=== PATIENT | female | born 1995 | race Caucasian/White ===

== ENCOUNTER 2022-12-20 10:57 | Emergency (ER) | payer BC, MEDICAID, SELFPAY ==
[2022-12-20 11:12] VITALS: BP 139/83; PULSE 82; RESP 16; TEMP 36.4; O2SAT 100
--- NOTE | 2022-12-20 11:17 | ED.SKABFB ---
HPI - Skin/Abscess/Foreign Bdy General Chief complaint: Skin/Abscess/Foreign Body Stated complaint: SUNBURN/FACIAL SWELLING Time Seen by Provider: 12/20/22 11:15 Source: patient Mode of arrival: ambulatory Limitations: no limitations History of Present Illness HPI narrative: Joaquin is a 27-year-old female patient presenting to the clinic today with complaints of lower lip swelling and blistering x1 day. States she is having burning and stinging pain to her lip. She reports her symptoms began yesterday morning. States she has recently got a sunburn and denies burning her lips however she thinks that this may be contributing factor. History of cold sores in the past. No fever or chills. Denies any environmental changes-new lip balm, lipstick, soaps, detergents, or lotions Related Data Home Medications Medication Instructions Recorded Confirmed No Home Medications 12/20/22 12/20/22 Allergies Allergy/AdvReac Type Severity Reaction Status Date / Time No Known Allergies Allergy Verified 12/20/22 11:22 Review of Systems Review of Systems: Pertinent positives per HPI. Patient denies any fever, chills, rash, headache, visual changes, dizziness, cough, runny nose, sore throat, shortness of breath, chest pain, palpitations, nausea, vomiting, diarrhea, constipation, abdominal pain, or any urinary issues. PMFSH Comments At the time of my signature, I reviewed and agree with the nursing past medical, surgical, social, and family history. There is no relevant family history pertinent to the patient complaint. Exam Narrative: General: Well-developed, well nourished, in no apparent distress Head: Normocephalic, atraumatic Eyes: Pupils equally round and reactive to light bilaterally, EOM intact, sclera and conjunctive clear, no discharge, lids normal Ears: TMs intact and clear, ear canals clear, no drainage, grossly hearing normal. Nose: Nares patent, no discharge, no inflammation, no sinus tenderness. Mouth: Oropharynx without lesions or masses, good dentition, MMM. Lower lip swelling with vesicular lesions, tender to palpation Neck: Supple, trachea midline, no enlargement of anterior or posterior cervical nodes, no thyroid masses or goiter palpable. Cardio: Regular rate and rhythm, s1 and s2 normal, no murmur appreciated. Resp: Clear to auscultation bilaterally anteriorly and posteriorly, no rhonchi, rales, wheezing or rubs Course Course Emergency Course: Portions of this record may have been created with voice recognition software. Level of Care: Express Care Visit Vital Signs Vital signs: Vital Signs Temperature 36.4 C 12/20/22 11:12 Pulse Rate 82 12/20/22 11:12 Respiratory Rate 16 12/20/22 11:12 Blood Pressure 139/83 12/20/22 11:12 Pulse Oximetry 100 12/20/22 11:12 Temperature 36.4 C 12/20/22 11:12 Pulse Rate 82 12/20/22 11:12 Respiratory Rate 16 12/20/22 11:12 Blood Pressure 139/83 12/20/22 11:12 Pulse Oximetry 100 12/20/22 11:12 Vital signs reviewed MDM - Skin/Abscess/Foreign Bdy MDM Narrative Medical decision making narrative: At the time of visit patient is resting comfortably on the exam table. I suspect patient has an HSV infection. Will send in prescription for some acyclovir and prednisone. Will also send in some mupirocin cream to apply to lip to treat a secondary bacterial infection. Supportive measures were discussed with the patient she voiced understanding discharge instructions agrees to treatment plan. Differential Diagnosis Differential diagnosis: Likely abscess of skin or subcutaneous tissue, cellulitis, impetigo and other (HSV) Discharge Plan Discharge Clinical Impression: Lip swelling, Lesion of lip, History of cold sores Patient Disposition: Home, Self-Care Condition: Stable Instructions: Antibiotic Form, Oral Herpes Infection (ED) Additional Instructions: Take acyclovir as prescribed Apply mupirocin cream to th
== END 2022-12-20 11:30 | disposition home or self-care (01) ==
PROVIDERS: Emergency Provider Nurse Practitioner Family
DX: R22.0 Localized swelling, mass and lump, head (principal); K13.0 Diseases of lips; Z86.19 Personal history of other infectious and parasitic diseases
CPT/HCPCS: 99213; G0463

== ENCOUNTER 2023-04-24 13:03 | Emergency (ER) | payer MEDICAID, SELFPAY ==
[2023-04-24 13:18] VITALS: BP 136/85; PULSE 103; RESP 16; TEMP 37.1; O2SAT 100
[2023-04-24 13:22] VITALS: BP 136/85; PULSE 103; RESP 16; TEMP 37.1; O2SAT 100
--- NOTE | 2023-04-24 13:31 | ED.URI ---
HPI - URI/Sore Throat General Chief Complaint: Upper Respiratory Infection Stated Complaint: SORE THROAT/FEVER/CHILLS Source: patient and RN notes reviewed Mode of arrival: ambulatory Limitations: no limitations History of Present Illness HPI Narrative: 27 y/o female presented for c/o cough, chest congestion, sore throat x2-3 days. Last night started with fever and chills, temp 101.4. Reports painful cough. Denies body aches, n/v/d. Taking ibuprofen. MD elicited complaint: cough Related Data Home Medications Medication Instructions Recorded Confirmed No Home Medications 12/20/22 04/24/23 Allergies Allergy/AdvReac Type Severity Reaction Status Date / Time No Known Allergies Allergy Verified 04/24/23 13:05 Review of Systems Review of Systems: CONSTITUTIONAL: Endorses malaise, chills, sweats, fever EYES: Denies visual changes, redness, or discharge ENT: Reports rhinorrhea, congestion, denies sinus pain, otalgia, sore throat CARDIOVASCULAR: Denies chest pain, palpitations, edema RESPIRATORY: Reports cough Denies dyspnea GASTROINTESTINAL: Denies abdominal pain, nausea, vomiting, diarrhea SKIN: Denies rash or itching MUSCULOSKELETAL: Endorses myalgia Exam Narrative: GENERAL: mildly Ill-appearing, nontoxic no acute distress. EYES: conjunctivae clear ENT: Mucous membranes moist. TMs pearly silva with dull light reflex bilaterally; no tragal tenderness. Oropharynx not erythematous without lesions or exudate, no drooling, no hoarseness, no trismus, uvula midline. NECK: Supple. No lymphadenopathy CHEST: Clear to auscultation, breath sounds equal. HEART: Regular rate and rhythm. No murmur heard. SKIN: Warm, dry, no rash. NEURO: Alert and oriented x3. PSYCH: Normal mood and affect Course Course Emergency Course: Patient is aware of diagnosis, understands and agrees to treatment plan. Anticipatory guidance given. Patient agrees to follow-up as directed and is aware of reasons to seek care at the emergency department. Portions of this record may have been created with voice recognition software Level of Care: Express Care Visit Vital Signs Vital signs: Vital Signs Temperature 98.8 F 04/24/23 13:18 Pulse Rate 103 H 04/24/23 13:18 Respiratory Rate 16 04/24/23 13:18 Blood Pressure 136/85 04/24/23 13:18 Pulse Oximetry 100 04/24/23 13:18 Temperature 98.8 F 04/24/23 13:22 Pulse Rate 103 H 04/24/23 13:22 Respiratory Rate 16 04/24/23 13:22 Blood Pressure 136/85 04/24/23 13:22 Pulse Oximetry 100 04/24/23 13:22 reviewed MDM - URI/Sore Throat MDM Narrative Medical decision making narrative: COVID positive. Test Results reviewed with patient. Discussed physical exam findings. Advised supportive measures and signs/symptoms to go to the ER. Pt is appropriate for outpt treatment and f/u. Differential Diagnosis Differential diagnosis: Likely upper respiratory infection, sinusitis and viral infection Lab Data Labs: Lab Results 04/24/23 Range/Units 13:20 POC SARS CoV-2 Ag Positive (Negative) Influenza A Screen Negative Reference Range: Negative Influenza B Screen Negative Reference Range: Negative Strep Screen Presumptive Negative *(Reference Range: Negative)* Discharge Plan Discharge Clinical Impression: COVID-19 Patient Disposition: Home, Self-Care Condition: Stable Instructions: Antibiotic Form, COVID-19 (Coronavirus Disease 2019) (ED) Additional Instructions: Your rapid COVID test was positive today. The following recommendations have been made by the CDC and local Health Departments, regarding COVID-19: -Those individuals with mild cases of COVID-19 can generally be discontinued from isolation 5 days AFTER the onset of symptoms AND the resolution of fever fo
== END 2023-04-24 13:50 | disposition home or self-care (01) ==
PROVIDERS: Emergency Provider Nurse Practitioner Family
DX: U07.1 COVID-19 (principal)
CPT/HCPCS: 87081; 87426; 87804; 87880; 99213; C9803; G0463

== ENCOUNTER 2023-09-06 11:12 | Emergency (ER) | payer OTHER, SELFPAY ==
[2023-09-06 11:19] VITALS: BP 135/83; PULSE 93; RESP 16; TEMP 36.1; O2SAT 96
--- NOTE | 2023-09-06 11:24 | ED.LOWEXIN ---
HPI - Extremity Injury (Lower) General Chief Complaint: Extremity Injury, Lower Stated Complaint: Fall Injury/Left Foot Injury Time Seen by Provider: 09/06/23 11:19 Source: patient, RN notes reviewed and old records reviewed Mode of arrival: ambulatory Limitations: no limitations History of Present Illness HPI Narrative: 28-year-old female presents to the [facility] with great toe and 1st metatarsal pain, swelling and bruising since slipping on stairs. Has abrasions to the lateral ankle Related Data Home Medications Medication Instructions Recorded Confirmed fluoxetine 40 mg capsule 40 mg PO DAILY 09/06/23 09/06/23 norgestimate 0.25 mg-ethinyl 1 tablet PO DAILY 09/06/23 09/06/23 estradiol 35 mcg tablet (Dorina) pantoprazole 40 mg tablet,delayed 40 mg PO DAILY 09/06/23 09/06/23 release Allergies Allergy/AdvReac Type Severity Reaction Status Date / Time No Known Allergies Allergy Verified 04/24/23 13:05 Review of Systems Review of Systems: All systems reviewed & are unremarkable except as noted in HPI and below Constitutional: Constitutional: Reports no additional constitutional complaints Eyes: Eyes: Reports no additional eye complaints ENT: Reports system reviewed and no additional complaints, except as documented Cardiovascular: Cardiovascular: Reports no additional cardiovascular complaints, Denies chest pain and Denies dyspnea Respiratory: Respiratory: Reports no additional respiratory complaints, Denies chest congestion, Denies cough and Denies dyspnea Gastrointestinal: Gastrointestinal: Reports no additional gastrointestinal complaints, Denies abdominal pain, Denies nausea and Denies vomiting Musculoskeletal: Musculoskeletal: Reports as per HPI, Reports arthralgias (Great toe) and Reports joint swelling (Great toe) Integumentary/Breasts: Skin/Breast: Reports as per HPI Neurologic: Reports system reviewed and no additional complaints, except as documented Psychiatric: Psychiatric: Reports no additional psychiatric complaints Allergic/Immunologic: Allergic/Immunologic: Reports no additional allergic/immunologic complaints PMFSH Comments At the time of my signature, I reviewed and agree with the nursing past medical, surgical, social, and family history. There is no relevant family history pertinent to the patient complaint. Exam Const: General: cooperative, healthy appearing, comfortable, no acute distress, well developed, alert and well nourished Nutritional Appearance: well nourished and obese Orientation/consciousness: patient oriented x3 Limitations: no limitations HENMT: Head: normal to inspection Ears: hearing grossly normal bilaterally and external ears normal Face/Nose/Sinus: Normal external nose present, Normal nares present, Normal nasal mucous membranes and turbinates present, normal facial exam and face symmetric Face and sinus: normal facial exam and face symmetric Eyes: General: appearance normal, both eyes and all related structures Alignment and Position: alignment normal Periorbital: periorbital findings normal Pupils: Equal, round and reactive pupils present EOM: EOMs intact bilaterally Neck: Neck: normal visual inspection, full ROM, no lymphadenopathy and no meningeal signs Chest: Chest palpation & inspection: normal inspection of the chest Resp: Effort & Inspection: normal respiratory effort and able to speak in complete sentences Cardio: Rate: regular rate Rhythm: regular rhythm Skin: General skin exam: normal color and no rashes or lesions noted Lesions: no lesions Rashes: no rashes Other: Abrasion noted to the left lateral malleolus. Neuro: General: patient oriented x3, gait normal, tone normal, moves all extremities and no meningeal signs Cranial nerves: Yes Equal, round and reactive pupils present Cognition (Neuro): normal cognition Speech: normal speech Gait exam (Neuro): Normal gait present Extrem: General: normal to inspection, full ROM, capil
== END 2023-09-06 12:21 | disposition home or self-care (01) ==
PROVIDERS: Emergency Provider Nurse Practitioner; PCP Emergency Medicine
DX: S90.32XA Contusion of left foot, initial encounter (principal); S90.512A Abrasion, left ankle, initial encounter; W10.9XXA Fall (on) (from) unspecified stairs and steps, initial encounter
CPT/HCPCS: 73630; 99213; G0463

== ENCOUNTER 2023-09-10 08:15 | Outpatient (CLI) | payer OTHER, SELFPAY ==
--- NOTE | ~2023-09-10 | NM_ITS ---
EXAMINATION: NM hepatobiliary wo pharm DATE: 09/10/2023 10:56 INDICATION: Abdominal pain. COMPARISON: None. TECHNIQUE: 4.6 mCi Tc-99m mebrofenin (Choletec) was administered intravenously. Scintigraphic images of the abdomen were obtained for one hour. Then, the patient drank 8 oz Ensure, and imaging was cont inued for 60 minutes. FINDINGS: There is normal clearance of radiotracer from the blood pool. There is homogeneous tracer u ptake by the liver. Activity progresses to the bowel and gallbladder. Gallbladder ejection fraction (GBEF) was 53%. Note that with this technique, normal GBEF >= 33%. IMPRESSION: 1. Normal hepatobiliary scintigraphy. Reviewed, dictated and finalized at location A.
== END 2023-09-10 08:16 | disposition home or self-care (01) ==
LOC: ANHIMG 08:19
PROVIDERS: PCP Emergency Medicine; Visit Provider Emergency Medicine
DX: R10.84 Generalized abdominal pain (principal)
CPT/HCPCS: 78226; A9537

== ENCOUNTER 2023-10-13 14:29 | Emergency (ER) | payer OTHER, SELFPAY ==
[2023-10-13 14:40] VITALS: BP 145/82; PULSE 76; RESP 16; TEMP 36.5; O2SAT 99
--- NOTE | 2023-10-13 14:41 | ED.EAR ---
HPI - Ear Problem General Chief complaint: Ear Stated complaint: Right Ear Pain/Sore Throat History of Present Illness HPI Narrative: Patient presents with right ear pain. 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 Patient denies any fever no cough no upper respiratory symptoms. Related Data Home Medications Medication Instructions Recorded Confirmed norgestimate 0.25 mg-ethinyl 1 tablet PO DAILY 09/06/23 09/06/23 estradiol 35 mcg tablet (Dorina) pantoprazole 40 mg tablet,delayed 40 mg PO DAILY 09/06/23 09/06/23 release Allergies Allergy/AdvReac Type Severity Reaction Status Date / Time No Known Allergies Allergy Verified 04/24/23 13:05 Review of Systems Review of Systems: CONSTITUTIONAL: Denies chills, or sweats. Reports fever and generalized body aches EYES: Denies visual changes, redness, or discharge. ENT: Denies otalgia. Reports nasal congestion runny nose and sore throat CARDIOVASCULAR: Denies chest pain, palpitations, or edema. RESPIRATORY: Denies dyspnea. Reports occasional cough GASTROINTESTINAL: Denies abdominal pain, nausea, vomiting, or diarrhea. GENITOURINARY: Denies dysuria or hematuria. SKIN: Denies rash or itching. MUSCULOSKELETAL: Denies back pain, joint pain, or myalgia. Reports generalized body aches NEUROLOGIC: Denies headache, numbness, or weakness. PSYCHIATRIC: Denies anxiety or depression. PMFSH Comments At time of signature, agree with nursing past medical, surgical, social and family history. There is no relevant family history pertinent to the presenting complaint Exam Narrative: The patient is a well-developed, well-nourished in no acute distress. SKIN: Skin is warm and dry without erythema, swelling or exudate. There is good turgor. No tenting. HEAD: Atraumatic. Normocephalic. No temporal or scalp tenderness. EYES: Moist and bright. Sclera and conjunctivae normal. No discharge. PERRLA. Extraocular motions intact. Gross visual acuity intact. EARS: Pinna is normal shape and contour. Clear external auditory canals. TM pearly gamez with good cone of light, no erythema or suppuration. Bilateral cerumen noted no gross hearing deficit. NOSE: pink, moist mucosa with good air movement. Clear rhinorrhea without nasal flaring. Septum midline. Mouth: moist mucous membranes. THROAT; mild erythema noted to posterior oropharynx with moderate postnasal drainage. Without exudate or ulceration.. Uvula midline. Normal movement of soft palate. NECK: Supple and nontender with full range of motion without discomfort. No meningeal signs. LUNGS: Equal and bilateral breath sounds without wheezes, rales or rhonchi. CHEST: The chest wall is without retractions or use of accessory muscles. HEART: Has a regular rate and rhythm without murmur, gallops, click or rub. ABDOMEN: Soft, nontender with positive active bowel sounds. No rebound tenderness. EXTREMITIES: Without cyanosis, clubbing or edema. Equal 2+ distal pulses and 2 second capillary refill noted. NEUROLOGIC: alert, active, . The patient moves all extremities with normal muscle strength. Normal muscle tone is noted. Normal coordination is noted. NO focal neurological findings noted. HENMT: Ears: EAC's normal and Abnormal EAC present erythema, edema and EAC tenderness on the right Course Course Level of Care: Express Care Visit Discharge Plan Discharge Clinical Impression: Otitis externa Patient Disposition: Home, Self-Care Condition: Stable Instructions: Antibiotic Form, Ear Infection (AC) Additional Instructions: Can use a heating pad on ear or a warm wet washcloth to the outer ear for approximate 20 minutes as needed for pain, this may help with the drainage no swimming until symptoms are gone try to keep the ear canals dry: After baths, showers, hair washing, swimming, turn your head to help the water drain out of the ears. DO NOT USE A Q-TIP use ear plugs when contacting water do not swim or submerges ears under lesa
== END 2023-10-13 14:48 | disposition home or self-care (01) ==
PROVIDERS: Emergency Provider Nurse Practitioner Family; PCP Emergency Medicine
DX: H60.91 Unspecified otitis externa, right ear (principal); Z86.16 Personal history of COVID-19
CPT/HCPCS: 99213; G0463

== ENCOUNTER 2023-10-21 13:01 | Emergency (ER) | payer OTHER, SELFPAY ==
--- NOTE | 2023-10-21 13:04 | ED.EAR ---
HPI - Ear Problem General Chief complaint: Upper Respiratory Infection Stated complaint: ear / exp to covid Time Seen by Provider: 10/21/23 13:04 Source: patient, RN notes reviewed and old records reviewed Mode of arrival: ambulatory Limitations: no limitations History of Present Illness HPI Narrative: 28-year-old female to Express Care for complaint of headache, head congestion, body aches, right ear pain for 1 week. Patient states she was diagnosed with otitis media 2 weeks ago and took Cipro for 7 days. Patient states that right ear has become increasingly more painful. Patient denies cough, sore throat, shortness of breath, chest pain, allergies. Patient able to tolerate fluids by mouth. Respirations even and nonlabored. Patient able to speak in full sentences without difficulty. Patient in no acute distress. Related Data Home Medications Medication Instructions Recorded Confirmed norgestimate 0.25 mg-ethinyl 1 tablet PO DAILY 09/06/23 10/21/23 estradiol 35 mcg tablet (Dorina) pantoprazole 40 mg tablet,delayed 40 mg PO DAILY 09/06/23 10/21/23 release Allergies Allergy/AdvReac Type Severity Reaction Status Date / Time No Known Allergies Allergy Verified 10/21/23 13:32 Review of Systems Review of Systems: All systems reviewed & are unremarkable except as noted in HPI and below Constitutional: Constitutional: Reports as per HPI, Reports body ache(s) and Reports headache(s) Eyes: Eyes: Reports no additional eye complaints ENT: Reports as per HPI, Reports otalgia ( Right), Reports nasal congestion and Reports sinus pressure Cardiovascular: Cardiovascular: Reports no additional cardiovascular complaints, Denies chest pain and Denies dyspnea Respiratory: Respiratory: Reports no additional respiratory complaints, Denies cough and Denies dyspnea Musculoskeletal: Musculoskeletal: Reports as per HPI and Reports myalgias Neurologic: Reports system reviewed and no additional complaints, except as documented Psychiatric: Psychiatric: Reports no additional psychiatric complaints PMFSH Comments At the time of my signature, I reviewed and agree with the nursing past medical, surgical, social, and family history. There is no relevant family history pertinent to the patient complaint. Exam Const: General: cooperative, no acute distress, alert, tired appearing, uncomfortable and well nourished Nutritional Appearance: well nourished Orientation/consciousness: patient oriented x3 Limitations: no limitations HENMT: Head: normal to inspection Ears: external ears normal, Abnormal EAC present and TM abnormal bulging on the right, dull on the right and erythematous on the right Face/Nose/Sinus: Normal external nose present, Normal nares present, normal facial exam, No erythema and No edema Face and sinus: normal facial exam, no erythema and no edema Mouth: Yes Normal oral and palatal mucosa present Eyes: General: appearance normal, both eyes and all related structures Neck: Neck: normal visual inspection, full ROM and no meningeal signs Lymphatic: no lymphadenopathy noted and no lymphedema noted Chest: Chest palpation & inspection: normal inspection of the chest Resp: Effort & Inspection: normal respiratory effort and able to speak in complete sentences Auscultation: clear to auscultation bilaterally Cardio: Jugular venous distension: no JVD Rate: regular rate Rhythm: regular rhythm Back/Spine/Pelvis: Cervical Spine: cervical ROM normal Skin: General skin exam: normal color, no rashes or lesions noted and turgor normal Neuro: General: patient oriented x3, gait normal, moves all extremities and no meningeal signs Speech: normal speech Gait exam (Neuro): Normal gait present Extrem: General: normal to inspection and full ROM Psych: Appearance: grossly normal and well kempt Course Course Emergency Course: Some parts of this dictation were generated by voice recognition software and may contain typo
[2023-10-21 13:10] VITALS: BP 134/86; PULSE 75; RESP 18; TEMP 36.6; O2SAT 99
[2023-10-21 13:55] LABS: EDINFLUASCREEN Negative; EDINFLUBSCREEN Negative; EDSTREPNEGPOS1 Presumptive Negative
== END 2023-10-21 13:20 | disposition home or self-care (01) ==
PROVIDERS: Emergency Provider Nurse Practitioner Family; PCP Emergency Medicine
DX: H66.91 Otitis media, unspecified, right ear (principal); Z20.822 Contact with and (suspected) exposure to COVID-19; K21.9 Gastro-esophageal reflux disease without esophagitis; Z86.16 Personal history of COVID-19
CPT/HCPCS: 87081; 87426; 87804; 87880; 99213; G0463

== ENCOUNTER 2023-11-02 18:19 | Emergency (ER) | payer OTHER, SELFPAY ==
--- NOTE | ~2023-11-02 | XR_ITS ---
Left foot Technique: AP, oblique, and lateral views were obtained. Clinical History: Pain, prior injury Findings: No acute fracture or dislocation is seen. Osseous alignment is anatomic. Joint spaces are p reserved without erosive or degenerative change. Soft tissues are unremarkable. Impression: Unremarkable left foot radiographs. Reviewed, dictated and finalized at location . Impression: Unremarkable left foot radiographs.
--- NOTE | 2023-11-02 18:28 | ED.LOWEXIN ---
HPI - Extremity Injury (Lower) General Chief Complaint: Extremity Injury, Lower Stated Complaint: INJURED L TOE Time Seen by Provider: 11/02/23 18:23 Source: patient, RN notes reviewed and old records reviewed Mode of arrival: ambulatory Limitations: no limitations History of Present Illness HPI Narrative: patient presents with complaints of left great toe pain for 2 months. She reports that 2 months ago she injured the affected toe on her back steps, there is no railing, she was trying to let her dog out and lost her balance. She denies other injury and trauma. Voices no other concerns or complaints. She reports that it still hurts to bear weight on the affected toe Related Data Home Medications Medication Instructions Recorded Confirmed norgestimate 0.25 mg-ethinyl 1 tablet PO DAILY 09/06/23 11/02/23 estradiol 35 mcg tablet (Dorina) pantoprazole 40 mg tablet,delayed 40 mg PO DAILY 09/06/23 11/02/23 release fluoxetine 40 mg capsule 40 mg PO DAILY 11/02/23 11/02/23 Allergies Allergy/AdvReac Type Severity Reaction Status Date / Time No Known Allergies Allergy Verified 11/02/23 18:23 Review of Systems Review of Systems: All systems reviewed & are unremarkable except as noted in HPI and below Constitutional: Constitutional: Reports no additional constitutional complaints ENT: Reports system reviewed and no additional complaints, except as documented Cardiovascular: Cardiovascular: Reports no additional cardiovascular complaints Respiratory: Respiratory: Reports no additional respiratory complaints Gastrointestinal: Gastrointestinal: Reports no additional gastrointestinal complaints Musculoskeletal: Comments: left great toe pain PMFSH Comments At the time of my signature, I reviewed and agree with the nursing past medical, surgical, social, and family history. There is no relevant family history pertinent to the patient complaint. Exam Const: General: cooperative, no acute distress, alert and awake Orientation/consciousness: oriented to person, oriented to place and oriented to time HENMT: Head: normal to inspection Resp: Effort & Inspection: normal respiratory effort and able to speak in complete sentences Auscultation: clear to auscultation bilaterally, no crackles, no rales, no rhonchi and no wheezes Cardio: Palpation: normal PMI Rate: regular rate Rhythm: regular rhythm Heart sounds: S1 normal heart sound present and S2 normal heart sound present Neuro: General: oriented to person, oriented to place and oriented to time Cranial nerves: Yes CN's II-XII intact bilaterally Extrem: Left lower extremity: foot Details: normal capillary refill, tenderness Location: of the great toe (left) and toes with normal ROM; no ecchymosis Psych: Appearance: grossly normal Thought process: Normal thought process present Insight: Good insight present (Psych) Judgement: Good judgement present (Psych) Course Course Level of Care: Express Care Visit Vital Signs Vital signs: Reviewed MDM - Extremity Injury (Lower) MDM Narrative Medical decision making narrative: patient with left great toe pain for 2 months. Normal physical exam with the exception of mildly tender left great toe. Negative x-ray. Discharge home, treat symptomatically. Tylenol and or ibuprofen for pain. Follow with primary care provider, elevated blood pressure noted, please follow with primary care provider regarding this as well. Emergency department for new or worsening symptoms Discharge instructions reviewed with patient, as well as provided in writing per nursing staff. The instructions also include specific and strict return/GO TO THE ER as well as f/u information. All questions have been answered, and the patient deny any further questions with discharge and discharge plan. Some parts of this dictation were generated by voice recognition software and may contain typographical and/or grammatical inaccuracies. Different
[2023-11-02 18:41] VITALS: BP 135/91; PULSE 70; RESP 16; TEMP 36.4; O2SAT 100
== END 2023-11-02 18:57 | disposition home or self-care (01) ==
PROVIDERS: Emergency Provider Nurse Practitioner Family; PCP Emergency Medicine
DX: M79.675 Pain in left toe(s) (principal); K21.9 Gastro-esophageal reflux disease without esophagitis; F41.9 Anxiety disorder, unspecified; Z86.16 Personal history of COVID-19
CPT/HCPCS: 73630; 99213; G0463

== ENCOUNTER 2024-12-24 08:08 | Emergency (ER) | payer SELFPAY ==
--- NOTE | 2024-12-24 08:10 | ED.URI ---
HPI - URI/Sore Throat General Chief Complaint: Upper Respiratory Infection Stated Complaint: Sore Throat/Right Ear Pain Time Seen by Provider: 12/24/24 08:15 Source: patient, RN notes reviewed and old records reviewed Mode of arrival: ambulatory Limitations: no limitations History of Present Illness HPI Narrative: 29-year-old female presents to the [facility] with complaints of a sore throat for 4-5 days, woke up this morning with right ear discomfort. States that she did take ibuprofen. [place] feverish this morning. Treatments prior to arrival: ibuprofen Related Data Home Medications ?Medication ?Instructions ?Recorded ?Confirmed ?Last Taken ?Type norgestimate 0.25 mg-ethinyl 1 tablet PO DAILY 09/06/23 11/02/23 Unknown History estradiol 0.035 mg tablet (Dorina) pantoprazole 40 mg tablet,delayed 40 mg PO DAILY 09/06/23 11/02/23 Unknown History release fluoxetine 40 mg capsule 40 mg PO DAILY 11/02/23 11/02/23 Unknown History Allergies Allergy/AdvReac Type Severity Reaction Status Date / Time No Known Allergies Allergy Verified 11/02/23 18:23 Review of Systems Review of Systems: All systems reviewed & are unremarkable except as noted in HPI and below Constitutional: Constitutional: Reports as per HPI ENT: Reports as per HPI, Reports otalgia and Reports sore throat Cardiovascular: Cardiovascular: Reports no additional cardiovascular complaints, Denies chest pain and Denies dyspnea Respiratory: Respiratory: Reports no additional respiratory complaints, Denies chest congestion, Denies cough and Denies dyspnea PMFSH Comments At the time of my signature, I reviewed and agree with the nursing past medical, surgical, social, and family history. There is no relevant family history pertinent to the patient complaint. Exam Const: General: cooperative, healthy appearing, comfortable, no acute distress, well developed, alert and well nourished Nutritional Appearance: well nourished Orientation/consciousness: patient oriented x3 Limitations: no limitations HENMT: Head: normal to inspection Ears: hearing grossly normal bilaterally, external ears normal, TM's normal bilaterally, mastoids normal, no periauricular adenopathy and Abnormal EAC present erythema (mild pink) on the right and EAC tenderness; no edema, no foreign body and no otic discharge Face/Nose/Sinus: Normal external nose present, Normal nares present and No nasal discharge present Mouth: Yes Normal oral and palatal mucosa present, Yes lip normal, Yes tongue normal and Yes moist mucous membranes Throat: tonsils normal, postnasal drainage and no uvular edema Eyes: General: appearance normal, both eyes and all related structures Alignment and Position: alignment normal Neck: Neck: normal visual inspection, full ROM, no lymphadenopathy and no meningeal signs Chest: Chest palpation & inspection: normal inspection of the chest Resp: Effort & Inspection: normal respiratory effort and able to speak in complete sentences Auscultation: clear to auscultation bilaterally, no crackles, no rales, no rhonchi and no wheezes Cardio: Rate: regular rate Skin: General skin exam: normal color and no rashes or lesions noted Neuro: General: patient oriented x3, gait normal, moves all extremities and no meningeal signs Cognition (Neuro): normal cognition Speech: normal speech Gait exam (Neuro): Normal gait present Extrem: General: normal to inspection, full ROM and normal gait Psych: Appearance: grossly normal and well kempt Mental Status: mental status grossly normal Speech and movement: Normal speech and movement present and Clear speech present Affect: normal affect Attitude: cooperative Course Course Level of Care: Express Care Visit Vital Signs Vital signs: Vital Signs Temperature 96.7 F L 12/24/24 08:20 Pulse Rate 81 12/24/24 08:20 Respiratory Rate 16 12/24/24 08:20 Blood Pressure 113/84 12/24/24 08:20 Pulse Oximetry 99 12/24/24 08:20 Oxygen Delivery Room Air 12/24/24 08:20 Temperature 96.7 F L 12/24/24 08:20 Pulse Rate 81 12/24/24 08:20 Respiratory Rate 16 12/24/24 08:20 Blood Pressure 113/84 12/24/24 08:20 Pulse Oximetry 99 12/24/24 08:20 Oxygen Delivery Room Air 12/24/24 08:20 Reviewed MDM - URI/Sore Throat MDM Narrative Medical decision making narrative: Patient sitting in exam room. Patient is nontoxic, vitals are stable. Patient presents with 4-5 day history of sore throat, has taken ibuprofen. Patient reports that she woke up this morning with right ear pain. No treatment. Reports subjective fever. Patient's flu COVID and strep were negative, will culture. Patient appropriate for outpatient treatment with close follow-up Discharge instructions reviewed with patient, as well as provided in writing per nursing staff. The instructions also include specific and strict return/GO TO THE ER as well as f/u information. All questions have been answered, and the patient deny any further questions with discharge and discharge plan. Some parts of this dictation were generated by voice recognition software and may contain typographical and/or grammatical inaccuracies. Differential Diagnosis Differential diagnosis: Likely upper respiratory infection, otitis media, sinusitis, viral infection, bronchitis, influenza and pharyngitis Lab Data Labs: Lab Results 12/24/24 12/24/24 Range/Units 08:35 08:45 POC Influenza A Ag Negative (Negative) POC Influenza B Ag Negative (Negative) POC SARS CoV-2 Ag Negative (Negative) POC Grp A Strep Screen Negative (Negative) Reviewed Critical Care Time Critical Care Time Critical Care Time: No Discharge Plan Discharge Clinical Impression: Acute irritant otitis externa of right ear, PND (post-nasal drip) Patient Disposition: Home Condition: Stable Instructions: Antibiotic Form, Earache (ED), Postnasal Drip (DC) Additional Instructions: Your rapid strep swab was negative today at [facility]. A throat culture will be sent to the laboratory for further testing. If the test is positive, you will receive a phone call within 48 hours and an appropriate antibiotic will be initiated at that time. Your rapid COVID test were negative Your rapid flu test was negative Your symptoms are likely due to a viral illness, which is not treated with antibiotics. Typically viral infections last 7-10 days, can linger for couple of weeks. It is very important to treat your symptoms. Drink plenty of water, Gatorade, Pedialyte, ice pops or Jell-O. -Alternate Tylenol and Motrin per package directions for fever or pain. You can alternate every 4 hours -Antihistamine medication such as Zyrtec/Claritin/Gloria during the day can help improve symptoms. -doing daily nasal irrigations can help relieve pressure your sinuses. Things like a Neti pot -Use Flonase twice a day for 5 days then daily to help reduce the inflammation and dry up your sinuses. -You can also use Mucinex. Be sure to drink plenty of water with this medication at least 8 ounces with every dose and it is important to drink 8 to 10 glasses of water per day. Water is a natural decongestant -Eat and drink things that are easy to swallow, like tea or soup, or popsicles. -Oral rinses such as: Salt water gargles and/or may use topical anesthetic (eg. Chloraseptic spray) or lozenges to relieve dryness or throat pain). -Frequent hand washing or hand border measurer and cutter is one of the best ways to prevent spread of infection. -Using a vaporizer or humidifier at night will also help thin secretions and help with coughing up phlegm. -Follow up with primary care provider in 7-10 days if condition is not improving - For new or worsening symptoms go directly to the nearest ER Patient Language: Faroese Prescriptions: New fluticasone propionate [Flonase Allergy Relief] 50 mcg/actuation spray,suspension 2 spray intranasal DAILY Qty: 16 0RF Rx Instructions: administer into each nostril xnmiizib-lcmzwyedq-OU 3.5-10,000-1 mg/mL-unit/mL-% drops,suspension 4 drp RIGHT EAR TID 5 Days Qty: 10 0RF No Action norgestimate-ethinyl estradiol [Dorina] 0.25-35 mg-mcg tablet 1 tablet PO DAILY pantoprazole 40 mg tablet,delayed release (DR/EC) 40 mg PO DAILY fluticasone propionate [Flonase Allergy Relief] 50 mcg/actuation spray,suspension 2 spray NASAL BID Qty: 9.9 0RF Rx Instructions: administer into each nostril fluoxetine 40 mg capsule 40 mg PO DAILY Follow-up/Referrals: Jared Loving DO [Physician, Family Practice] UNKNOWN,DOCTOR [Non-Staff] Stand Alone Forms: Work/School Release IP Time of Disposition: 08:37
--- OUTSIDE RECORDS SUMMARY | 2024-12-24 08:12 | XMS_ITS | Clinical Summary ---
Author Organization [facility] Address [address] [place] [address] Phone Care Team Providers Care Certified Prosthetist/Orthotist Name Role Phone Reynaldo Howard MD Primary Care Provider [phone] Allergies No known active allergies Medications FLUoxetine (PROzac) 40 MG Capsule Take 40 mg by mouth daily. Active ketorolac (TORADOL) 10 MG Tablet Take 1 Tablet by mouth every 6 hours as needed for Moderate or more severe pain. 20 Tablet 09/08/2023 Active Social History Tobacco Use Types Packs/Day Years Used Date Smoking Tobacco: Never Smokeless Tobacco: Never Tobacco Cessation:Counseling Given: Not Answered Alcohol Use Standard Drinks/Week Comments Not Asked 0 (1 standard drink = 0.6 oz pur e alcohol) occassionally Comments Unknown Sex and Gender Information Value Date Recorded Sex Assigned at Not on file Legal Sex Female 8:19 PM CDT Gender Identity Not on file Sexual Orientation Not on file Last Filed Vital Signs Vital Sign Reading Time Taken Comments Blood Pressure 141/84 09/08/2023 9:59 PM CDT Pulse 77 09/08/2023 9:59 PM CDT Temperature 36.5 C (97.7 F) 09/08/2023 9:59 PM CDT Respiratory Rate 18 09/08/2023 9:59 PM CDT Oxygen Saturation 99% 09/08/2023 9:59 PM CDT Inhaled Oxygen Concentration - - Weight 98 kg (216 lb) 09/08/2023 9:59 PM CDT Height 162.6 cm (5' 4) 09/08/2023 9:59 PM CDT Body Mass Index 37.08 09/08/2023 9:59 PM CDT Plan of Treatment Health Maintenance Due Date Last Done Comments Hepatitis C Virus (HCV) Screening 1996 Hepatitis B Immunization (1 of 3 - 19+ 3-dose series) 2015 Pap Smear 2017 Influenza Immunization (#1) 12/21/202411/2011, 02/10/2011, 03/02/2009 SARS-COV-2 Immunization ( - 2023- season) 2024 Respiratory Syncytial Virus (RSV) Immunization (Adult) (1 - 1-dose 75+ series) 2071 Human Papillomavirus (HPV) Immunization Completed 02/10/2013, 01/28/2012, 02/10/2011 Meningococcal Immunization (ACWY) Completed 02/10/2013, 12/31/2008 TdaP Immunization Completed 05/11/2020, 12/31/2008 Pneumococcal Immunization Combined Aged Out No longer eligible b ased on patient's age to complete this topic Rotavirus Immunization Aged Out No lo nger eligible based on patient's age to complete this topic Insurance [facility] Care Teams Certified Prosthetist/Orthotist Relationship Specialty Start Date End Date Reynaldo Howard MD [address] [facility] [id number] [place] [address] PCP - General 08/20/23
--- OUTSIDE RECORDS SUMMARY | 2024-12-24 08:12 | XMS_ITS | Clinical Summary ---
Author Organization [facility] Address On license of [facility] [place] [address] Care Team Providers Care Septic Tank Service Technician Name Role Phone Gigi Howard MD Primary Care Provider [phone] Allergies No known active allergies Medications cefdinir (OMNICEF) 300 MG Cap capsule Take 1 capsule (300 mg total) by mouth 2 (two) times daily. 20 capsule 4 Active ondansetron (ZOFRAN-ODT) 4 MG disintegrating tablet Take 1 tablet (4 mg total) by mouth every 8 (eight) hours as needed for Nausea. 20 tablet 4 Active Social History Tobacco Use Types Packs/Day Years Used Date Smoking Tobacco: Never Smokeless Tobacco: Never Tobacco Cessation:Counseling Given: Not Answered Alcohol Use Standard Drinks/Week Comments Not Currently 0 (1 standard drink = 0.6 oz pur e alcohol) Comments No Sex and Gender Information Value Date Recorded Sex Assigned at Not on file Legal Sex Female 11:20 PM CDT Gender Identity Not on file Sexual Orientation Not on file Last Filed Vital Signs Vital Sign Reading Time Taken Comments Blood Pressure 147/97 08/23/2023 3:20 AM CDT Pulse 80 08/23/2023 3:20 AM CDT Temperature 36.7 C (98 F) 08/23/2023 3:20 AM CDT Respiratory Rate 18 08/23/2023 3:20 AM CDT Oxygen Saturation 100% 08/23/2023 3:20 AM CDT Inhaled Oxygen Concentration - - Weight 95.7 kg (211 lb) 08/22/2023 11:34 PM CDT Height 162.6 cm (5' 4) 08/22/2023 11:34 PM CDT Body Mass Index 36.22 08/22/2023 11:34 PM CDT Plan of Treatment Health Maintenance Due Date Last Done Comments Annual Physical 1999 Hepatitis C 2014 Hepatitis B Vaccines (1 of 3 - 19+ 3-dose series) 2015 COVID-19 Vaccine ( - 2023- season) 2023 Cervical Cancer Screening Pap Smear (Age 21 to 29) Every 3 Years 05/31/2024 05/31/2021 Cervical Cancer Screening 05/31/2024 DTaP, Tdap and Td Vaccines (5 - Td or Tdap) 05/11/2030 05/11/2020, 12/31/2008, 03/26/2001, Additional history exists HPV Vaccines Completed 02/10/2013, 11/2011, 02/10/2011 Meningococcal Vaccine Aged Out 02/10/2013, 009 No longer eligible based on patient's age to complete this topic Meningococcal B Vaccine Aged Out No l onger eligible based on patient's age to complete this topic Pneumococcal Vaccine: Pediatrics (0 to 5 Years) and At-Risk Patients (6 to 49 Years) Aged Out No longer eligible based on patient's age to complete this topic RSV Immunizations Under 20 Months Aged Out No longer eligible based on patient's age to complete this topic Insurance [facility] Care Teams Septic Tank Service Technician Relationship Specialty Start Date End Date Gigi Howard MD [address] [place] [address] PCP - General FAMILY PRACTICE 08/22/23
--- OUTSIDE RECORDS SUMMARY | 2024-12-24 08:12 | XMS_ITS | Clinical Summary ---
Author Organization [facility] Address [address] [place] [address] Care Team Providers Care Professor Of Finance Name Role Phone Dwight Garcia MD Primary Care Provider Collette spicer Source Comments [facility],non-owned Affiliates and Associated Physician Practices is amultiple site organization consisting of ambulatory clinics and hospital sitesin [place] and [place]. This disclosure is being madepursuant to the Care Everywhere program and may not contain all information available regarding this patient. Last updated 18.[facility] Allergies Active Allergy Reactions Criticality Noted Date Comments Axert 11/23/2012 Medications * Be aware that medications may not be up to date on this document. Alwaysverify current medications with the patient. 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 Gender Identity Not on file Sexual Orientation Not on file Last Filed Vital Signs Vital Sign Reading Time Taken Comments Blood Pressure 119/73 12/10/2019 9:35 PM CDT Pulse 89 12/10/2019 9:35 PM CDT Temperature 36.8 C (98.2 F) 12/10/2019 9:35 PM CDT Respiratory Rate 17 12/10/2019 9:35 PM CDT Oxygen Saturation 100% 12/10/2019 9:35 PM CDT Inhaled Oxygen Concentration - - Weight 83.9 kg (185 lb) 12/10/2019 9:35 PM CDT Height 160 cm (5' 3) 12/10/2019 9:35 PM CDT Body Mass Index 32.77 12/10/2019 9:35 PM CDT Plan of Treatment Health Maintenance Due Date Last Done Comments HIV SCREENING 2011 HEPATITIS C SCREENING 05/10/2014 DTAP/TDAP/TD VACCINES (1 - Tdap) 2015 HEPATITIS B VACCINE (1 of 3 - 19+ 3-dose series) 2015 HPV VACCINE (1 - 3-dose SCDM series) 2023 DEPRESSION SCREENING 04/22/2024 PAP SMEAR 05/31/2024 05/31/2021 COVID-19 VACCINE ( - 2023- season) 2024 INFLUENZA VACCINE (#1) 2024 2, 02/10/2011, 01/20/2010, Additional history exists ZOSTER VACCINE (1 of 2) 2046 HIB VACCINE Aged Out No longer eligi ble based on patient's age to complete this topic MENINGOCOCCAL (Group B) VACCINE SHARED DECISION-MAKING Aged Out No longer eligible based on patient's age to complete this topic MENINGOCOCCAL GROUPS A/C/Y/W VACCINE Aged Out No longer eligible based on patient's age to complete this topic PNEUMOCOCCAL VACCINE Aged Out No long er eligible based on patient's age to complete this topic Insurance [employer] Care Teams Professor Of Finance Relationship Specialty Start Date End Date Dwight Garcia MD PCP - General 09/10/08
--- OUTSIDE RECORDS SUMMARY | 2024-12-24 08:12 | XMS_ITS | Encounter Summary ---
Author Organization [facility] Address [address] [place] [address] Care Team Providers Care Health Care Sanitary Technician Name Role Phone Dwight Garcia MD Primary Care Provider [phone] Encounter Details Date Type Department Care Team (Late st Contact Info) Description 09/29/2008 Outpatient Historical HIS MRI DEPT [facility], External Provider [address] [place] [address] [place] [address] [place] [id number] Social History Tobacco Use Types Packs/Day Years Used Date Smoking Tobacco: Never Assessed Comments Unknown Sex and Gender Information Value Date Recorded Sex Assigned at Not on file Legal Sex Female 5:44 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
--- OUTSIDE RECORDS SUMMARY | 2024-12-24 08:12 | XMS_ITS | Clinical Summary ---
Author Organization [facility] Address [address] [place] [address] Care Team Providers Care Hydrotreater Operator Name Role Phone No, Physician Primary Care Provider [phone] Allergies Active Allergy Reactions Criticality Noted Date Comments Almotriptan Malate Dizziness Low 11/23/2012 Medications ibuprofen (ADVIL,MOTRIN) 600 mg tablet Take 1 tablet (600 mg total) by mouth every 6 (six) hours 60 tablet 2 05/24/2020 Active vit-iron bisgly-FA 32-1,000 mg-mcg tabletIndicatio ns:lactating mother,Vitamin Deficiency Prevention Take 1 tablet by mouth daily 30 tablet 3 05/25/2020 Active docusate sodium (COLACE) 100 mg capsuleIndicati ons:constipatio n,Stool Softener Take 1 capsule (100 mg total) by mouth 2 (two) times a day 60 capsule 2 05/24/2020 Active topiramate (TOPAMAX ORAL) Take by mouth Active NIFEdipine (PROCARDIA XL/ADALAT CC) 30 mg 24 hr tablet Take 2 tablets (60 mg total) by mouth daily 60 tablet 11 10/18/2021 Active Active Problems Problem Noted Date Diagnosed Date Hypertension 06/03/2021 Overview (06/03/2021): History of severe preeclampsia, increased Nifedipine to 60 mg. Recommend est care and follow up with PCP for ongoing mgmt. S/P section 06/06/2020 Assessment & Plan (06/06/2020 1:48 PM BLASTING COAL MINER): for failed IOL in setting of preeclampsia with severe features; incision is healing. Advised to gently remove steri strips, keep clean/dry. Return in 4 weeks for visit. Anxiety and depression 06/06/2020 Assessment & Plan (06/06/2020 1:52 PM BLASTING COAL MINER): Started on Zoloft 25mg postoperatively, tolerating well. Continue current dose. Resolved Problems Problem Noted Date Diagnosed Date Resolved Date Preeclampsia, severe, third trimester 2020 05/21/2020 Assessment & Plan (06/06/2020 1:49 PM BLASTING COAL MINER): Blood pressures at reportedly goal with daily Nifedipine. Continue until visit, reassess further need for antihypertensive then. Arrest of dilation, delivere d, current hospitalization 06/03/2021 33 weeks gestation of 06/03/2021 Immunizations Immunization Administration Dates Next Due DTaP 03/26/2001,01/06/1998 H1N1 All Forms 03/02/2009 HPV, Quadrivalent 02/10/2013,01/28/2012,02/11/20 11 Hep A, Pediatric 10/27/2004,11/10/2003 IPV 03/26/2001 Influenza, Split 01/20/2010, 9,02/07/2008,03/24,02/14/2006,02/27/2005 Influenza, Trivalent, IM (MDV) 02/10/2011 Influenza, Trivalent, Preser vative Free, Intramuscular 01/28/2012 MMR 05/21/2020,03/26/2001 Meningococcal MCV4, Unspecified 02/10/2013 Meningococcal MCV4P (Menactra) 12/31/2008 Polio, Unspecified 01/06/1998 Tdap 05/11/2020,12/31/2008 Varicella 03/28/2007,11/10/2003 Surgical History Surgery Date Site/Laterality Comments SECTION, LOW TRANSVERSE 05/21/2020 Baby Boy Judah Medical History Medical History Date Comments Closed fracture of radius wi th ulna, upper end Closed Fracture Of Radius Wi th Ulna (Proximal) - (Added by TW Conv) Personal history of other di seases of the digestive system History of esophageal reflux - Infancy (Added by TW Conv) Asthma Migraines Family History Medical History Relation Name Comments Irritable bowel syndrome Mother Irr itable Bowel Syndrome - (Added by TW Conv) Uterine cancer Neg Hx Relation Name Status Comments Mother Social History Tobacco Use Types Packs/Day Years Used Date Smoking Tobacco: Former Cigarettes Q uit: 10/21/2019 Alcohol Use Standard Drinks/Week Comments Never 0 (1 standard drink = 0.6 oz pur e alcohol) AUDIT-C Answer Date Recorded Q1: How often do you have a drink containing alc ohol? Never 05/09/2020 Average Number of Drinks Not on file 021 Frequency of Binge Drinking Not on file 04/22 [place] Depression Scale Answer Date Recorded [place] Depression Scale Total 15 07/01/2020 The thought of harming myself has occurred to me . Never 07/01/2020 Personal Safety Answer Date Recorded Have you ever been in or are you currently in a harmful physical or emotional relationship or is someone making you feel afraid or unsafe? Denies 03/23/2024 Comments No Sex and Gender Information Value Date Recorded Sex Assigned at Not on file Legal Sex Female 10:13 PM BLASTING COAL MINER Gender Identity Not on file Sexual Orientation Not on file Obstetrics History Para Term AB IAB SAB Ectopic Multiple Livin g Live Births 1 1 1 0 1 1 Date Outcome GA Total Labor Labor/2nd/3rd Weight Sex Type Anes PTL Mimi A1 A5 Name Clin 021 33w 4d 2.03 kg (4 lb 7.6 oz) M CS-LT ranv Epidu ral,C ombin ed Spina l/Epi dural Y Livin g 8 6 LIZA Gilmore,BOY Luly Wong SA, MD Complications:Failure to Pro aram in First Stage Delivery Location:This [facility] ([facility] L AND D PROCEDURE) Last Filed Vital Signs Vital Sign Reading Time Taken Comments Blood Pressure 129/75 03/23/2024 5:20 PM BLASTING COAL MINER Pulse 88 03/23/2024 5:20 PM BLASTING COAL MINER Temperature 36.7 C (98 F) 03/23/2024 1:46 PM BLASTING COAL MINER Respiratory Rate 16 03/23/2024 5:20 PM BLASTING COAL MINER Oxygen Saturation 99% 03/23/2024 5:20 PM BLASTING COAL MINER Inhaled Oxygen Concentration - - Weight 102.1 kg (225 lb) 03/23/2024 1:46 PM BLASTING COAL MINER Height 161.5 cm (5' 3.58) 05/31/2021 2:34 PM CS T Body Mass Index 39.13 05/31/2021 2:34 PM BLASTING COAL MINER Plan of Treatment Health Maintenance Due Date Last Done Comments Hepatitis C Screening 1995 Hepatitis B Screening 2014 Depression Screening 07/01/2021 07/01/2020 Cervical Cancer Screening 05/31/2022 05/31/2021, 03/2021 Regular Well Visit/Exam 18-64 05/31/2022 05/31/2021 Influenza Vaccine (#1) 2024 2, 02/10/2011, 01/20/2010, Additional history exists DTaP/Tdap/Td Vaccine (5 - Td or Tdap) 05/11/2030 05/11/2020, 12/31/2008, 03/26/2001, Additional history exists Varicella Vaccines Completed 03/28/2007, 11/10/2003 HPV Vaccines Completed 02/10/2013, 11/2011, 02/10/2011 Pneumococcal vaccine <65 Aged Out No longer eligible based on patient's age to complete this topic Procedures Procedure Name Priority Date/Time Associated Diagnosis Comments PAP WITH REFLEX TO HIGH RISK HPV Routine 05/31/2021 3:59 PM BLASTING COAL MINER Encounter for well woman exam with routine gynecological exam from Last 3 Months or Most Recently Relevant to Health Maintenance Results * Pap with reflex to High Risk HPV (05/31/2021 3:59 PM BLASTING COAL MINER) Thin prep (Pap test) 05/31/2021 3:59 PM BLASTING COAL MINER 06/01/2021 10:37 AM BLASTING COAL MINER Narrative PATHOLOGY [facility] - 06/06/2021 7:55 AM BLASTING COAL MINER EPIC results best viewed via link to PDF [address], [place], [place] [address] Tele: Christine Andre MD - Internet Sales Representative CYTOLOGY REPORT Note to Patients: This report may contain a detailed description of human tissue sent by a health care provider to the laboratory for pathologic evaluation. The content of this report is essential for diagnosis and may provide important critical findings. This information may be unfamiliar to patients to review without a medical professional present. It is advised that the patient review this report in the presence of a health care provider who can answer questions and explain the details. Patient Name: SANFORDASHLEY ELLEN L. Address: [facility] [address] , [place] [address] Gender: F : 1995 (Age: 26) Service: Location: Hospital #: [id number] Patient Type: [facility] [place] SPECIMEN Taken: 05/31/2021 Reported: 06/06/2021 Physician(s): Marely Deutsch M.D. FINAL DIAGNOSIS: Specimen Type: - ThinPrep Pap w/ reflex HPV Statement of Specimen Adequacy: Source: Cervical/Endocervical - Satisfactory for interpretation - Endocervical/Transformation zone component absent or insufficient - Case screened using computer assisted imaging technology and manually re- screened by a patcher wood welder. General Categorization: - Negative for intraepithelial lesion or malignancy xbb/06/06/2021 07:55 Vickie Arnold M.S., ADIEL (ASCP) ADIEL Estevez (ASCP) Report Reviewed and Electronically Signed By ADIEL Estevez (ASCP) Clerical Data Follow A; G0145 CLINICAL DIAGNOSIS AND HISTORY Last Menstrual Period: 05-31-2021 This specimen has been rescreened in accordance with the [facility] Laboratory Quality Management Program. REPORT IMAGES AND/OR SCANNED DOCUMENTS ONLY VIEWABLE IN PDF FORMAT The Pap test is a screening test used to aid in the detection of cervical cancer and its precursors. It should not be the sole means by which malignant and premalignant lesions are diagnosed. Both false negative and false positive results may occur. It also has poor sensitivity for the detection of endometrial lesions and should not be used to evaluate suspected endometrial abnormalities. For these reasons it is most important to obtain Pap tests at regular intervals, as recommended by your physician or nurse practitioner. us Marely Deutsch MD LAB CYTOLOGY ORDERABLES Final Result PATHOLOGY [facility] Laboratory Receiving [address] [place] [address] from Last 3 Months or Most Recently Relevant to Health Maintenance Insurance [employer] EXCHANGE Member Subscriber Plan / Payer (Ef fective 2021-Present) Name:Ellen Oliveros Relation to Subscriber:Self Name:Ellen Oliveros Payer ID:[id number] (NAIC) Type:HEALTHCARE/EXCHANGE Address: [address] [employer] Advance Directives For more information, please contact: [phone] * Full Code (Latest Code Status on File) Date Activated Date Inactivated Comments 05/21/2020 12:18 PM 05/25/2020 6:32 PM * Full Code Date Activated Date Inactivated Comments 05/11/2020 5:21 AM 05/21/2020 12:18 PM Care Teams Hydrotreater Operator Relationship Specialty Start Date End Date No, Physician PCP - General 03/23/24
--- OUTSIDE RECORDS SUMMARY | 2024-12-24 08:12 | XMS_ITS | Clinical Summary ---
Author Organization [facility] Address [address] [place] [address] Phone Care Team Providers Care Elementary Assistant Teacher Name Role Phone Dwight Garcia MD Primary Care Provider [phone] Medications diclofenac sodium (VOLTAREN) 75 mg Tablet, Delayed Release (E.C.) Take 1 Tablet (75 mg) by mouth 2 times daily. 60 Tablet 11/28/2019 Active cyclobenzaprine (FLEXERIL) 10 mg tablet Take 1 Tablet (10 mg) by mouth 3 times daily as needed for Spasm. 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 Gender Identity Not on file Sexual Orientation Not on file Last Filed Vital Signs Vital Sign Reading Time Taken Comments Blood Pressure 131/93 11/28/2019 2:45 PM CDT Pulse - - Temperature 36.7 C (98 F) 11/28/2019 2:45 PM CDT Respiratory Rate 20 11/28/2019 2:45 PM CDT Oxygen Saturation 100% 11/28/2019 2:45 PM CDT Inhaled Oxygen Concentration - - Weight 86.2 kg (190 lb) 11/28/2019 2:45 PM CDT Height 160 cm (5' 3) 11/28/2019 2:45 PM CDT Body Mass Index 33.66 11/28/2019 2:45 PM CDT Plan of Treatment Health Maintenance Due Date Last Done Comments HEPATITIS B VACCINES (1 of 3 - 19+ 3-dose series) 01/2 06/2015 CERVICAL CANCER SCREENING 2017 HPV/Cotest (21-29) 2017 PAP SMEAR 2017 HPV VACCINES (1 - 3-dose SCDM series) 2023 INFLUENZA VACCINE (#1) 2024 DTAP/TDAP/TD VACCINES (2 - Td or Tdap) 05/11/2030 Care Teams Elementary Assistant Teacher Relationship Specialty [place] [address] [place] [id number] PCP - General Pediatrics 11/28/19
[2024-12-24 08:20] VITALS: BP 113/84; PULSE 81; RESP 16; TEMP 35.9; O2SAT 99
[2024-12-24 08:37] LABS: EDSTREPNEGPOS1 Negative (Negative)
[2024-12-24 08:46] LABS: EDCOVIDSCREEN Negative (Negative); EDINFLUASCREEN Negative (Negative); EDINFLUBSCREEN Negative (Negative)
== END 2024-12-24 08:46 | disposition home or self-care (01) ==
PROVIDERS: Emergency Provider Nurse Practitioner
DX: H60.91 Unspecified otitis externa, right ear (principal); R09.82 Postnasal drip; Z20.822 Contact with and (suspected) exposure to COVID-19; K21.9 Gastro-esophageal reflux disease without esophagitis; F41.9 Anxiety disorder, unspecified; Z86.16 Personal history of COVID-19
CPT/HCPCS: 87081; 87426; 87804; 87880; 99213; G0463

== ENCOUNTER 2025-01-20 08:52 | Emergency (ER) | payer SELFPAY ==
[2025-01-20 08:57] VITALS: BP 134/80; PULSE 83; RESP 18; TEMP 36.1; O2SAT 99
--- OUTSIDE RECORDS SUMMARY | 2025-01-20 09:15 | XMS_ITS | Clinical Summary ---
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
--- OUTSIDE RECORDS SUMMARY | 2025-01-20 09:15 | XMS_ITS | Clinical Summary ---
Author Organization [facility] Address [address] [place] [address] Phone Care Team Providers Care Appliance Servicer Name Role Phone Reynaldo Howard MD Primary Care Provider Allergies No known active allergies Medications FLUoxetine [...] patient's age to complete this topic Insurance [facility] Care Teams Appliance Servicer Relationship Specialty Start Date End Date Reynaldo Howard MD [address] [facility] [id number] [place] [address] PCP - General 08/20/23
--- OUTSIDE RECORDS SUMMARY | 2025-01-20 09:15 | XMS_ITS | Encounter Summary ---
Author Organization [facility] Address [address] [place] [address] Care Team Providers Care Deblocker Name Role Phone Dwight Garcia MD Primary Care Provider [phone] Encounter Details Date Type Department Care Team (Late st Contact Info) Description 09/29/2008 Outpatient Historical HIS MRI DEPT [facility], External Provider [address] [place] [address] [place] [address] [place] [id number] Social History Tobacco Use Types Packs/Day Years Used Date Smoking Tobacco: Never Assessed Comments Unknown Sex and Gender Information Value Date Recorded Sex Assigned at Not on file Legal Sex Female 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
--- OUTSIDE RECORDS SUMMARY | 2025-01-20 09:15 | XMS_ITS | Clinical Summary ---
Author Organization [facility] Address [address] [place] [address] Care Team Providers Care Network Coordinator Name Role Phone No, Physician Primary Care Provider [phone] Allergies Active Allergy Reactions Criticality Noted Date [...] 06/06/2020 Assessment & Plan (06/06/2020 1:48 PM MUSICAL THERAPIST): for failed IOL in setting of preeclampsia with severe features; incision is healing. Advised to gently remove steri strips, keep clean/dry. Return in 4 weeks for visit. Anxiety and depression 06/06/2020 Assessment & Plan (06/06/2020 1:52 PM MUSICAL THERAPIST): Started on Zoloft 25mg postoperatively, tolerating well. Continue current dose. Resolved Problems Problem Noted Date Diagnosed Date Resolved Date Preeclampsia, severe, third trimester 2020 05/21/2020 Assessment & Plan (06/06/2020 1:49 PM MUSICAL THERAPIST): Blood pressures at reportedly goal with daily [...] of Binge Drinking Not on file 04/22 [place] Depression Scale Answer Date Recorded [place] Depression Scale Total 15 07/01/2020 The thought [...] on file Legal Sex Female 10:13 PM MUSICAL THERAPIST Gender Identity Not on file Sexual Orientation [...] aram in First Stage Delivery Location:This [facility] ([facility] L AND D PROCEDURE) Last Filed Vital Signs Vital Sign Reading Time Taken Comments Blood Pressure 129/75 03/23/2024 5:20 PM MUSICAL THERAPIST Pulse 88 03/23/2024 5:20 PM MUSICAL THERAPIST Temperature 36.7 C (98 F) 03/23/2024 1:46 PM MUSICAL THERAPIST Respiratory Rate 16 03/23/2024 5:20 PM MUSICAL THERAPIST Oxygen Saturation 99% 03/23/2024 5:20 PM MUSICAL THERAPIST Inhaled Oxygen Concentration - - Weight 102.1 kg (225 lb) 03/23/2024 1:46 PM MUSICAL THERAPIST Height 161.5 cm (5' 3.58) 05/31/2021 2:34 PM CS T Body Mass Index 39.13 05/31/2021 2:34 PM MUSICAL THERAPIST Plan of Treatment Health Maintenance Due Date [...] HIGH RISK HPV Routine 05/31/2021 3:59 PM MUSICAL THERAPIST Encounter for well woman exam with routine gynecological exam from Last 3 Months or Most Recently Relevant to Health Maintenance Results * Pap with reflex to High Risk HPV (05/31/2021 3:59 PM MUSICAL THERAPIST) Thin prep (Pap test) 05/31/2021 3:59 PM MUSICAL THERAPIST 06/01/2021 10:37 AM MUSICAL THERAPIST Narrative PATHOLOGY [facility] - 06/06/2021 7:55 AM MUSICAL THERAPIST EPIC results best viewed via link to PDF [address], [place], [place] [address] Tele: Christine Andre MD - Oil Field Roustabout CYTOLOGY REPORT Note to Patients: This report [...] details. Patient Name: SANFORDASHLEY ELLEN L. Address: [facility] [address] , [place] [address] Gender: F : 1995 (Age: 26) Service: Location: Hospital #: [id number] Patient Type: [facility] SPECIMEN Taken: 05/31/2021 Reported: 06/06/2021 Physician(s): Marely Deutsch M.D. FINAL DIAGNOSIS: Specimen Type: - ThinPrep Pap w/ reflex HPV Statement of Specimen Adequacy: Source: Cervical/Endocervical - Satisfactory for interpretation - Endocervical/Transformation zone component absent or insufficient - Case screened using computer assisted imaging technology and manually re- screened by a regional medical director. General Categorization: - Negative for intraepithelial lesion or malignancy xbb/06/06/2021 07:55 Vickie Arnold M.S., ADIEL (ASCP) ADIEL Estevez (ASCP) Report Reviewed and Electronically Signed By ADIEL Estevez (ASCP) Clerical Data Follow A; G0145 CLINICAL DIAGNOSIS AND HISTORY Last Menstrual Period: 05-31-2021 This specimen has been rescreened in accordance with the [facility] Laboratory Quality Management Program. REPORT IMAGES [...] MD LAB CYTOLOGY ORDERABLES Final Result PATHOLOGY [facility] Laboratory Receiving [address] [place] [address] from Last 3 Months or Most Recently Relevant to Health Maintenance Insurance [employer] EXCHANGE Member Subscriber Plan / Payer (Ef fective 2021-Present) Name:Ellen Oliveros Relation to Subscriber:Self Name:Ellen Oliveros Payer ID:[id number] (NAIC) Type:HEALTHCARE/EXCHANGE Address: [address] [employer] Advance Directives For more information, please contact: [phone] * Full Code (Latest Code Status on File) Date Activated Date Inactivated Comments 05/21/2020 12:18 PM 05/25/2020 6:32 PM * Full Code Date Activated Date Inactivated Comments 05/11/2020 5:21 AM 05/21/2020 12:18 PM Care Teams Network Coordinator Relationship Specialty Start Date End Date No, Physician PCP - General 03/23/24
--- OUTSIDE RECORDS SUMMARY | 2025-01-20 09:15 | XMS_ITS | Clinical Summary ---
Author Organization [facility] Address [address] [place] [address] Care Team Providers Care Pet Training Instructor Name Role Phone Dwight Garcia MD Primary Care Provider Collette spicer Source Comments [facility],non-owned Affiliates and Associated Physician Practices is amultiple site organization consisting of ambulatory clinics and hospital sitesin [place], [place], [place] and [place]. This disclosure is being madepursuant to the Care Everywhere program and may not contain all information available regarding this patient. Last updated 18.[facility] Allergies Active Allergy Reactions Criticality Noted Date [...] on file Legal Sex Female 5:56 AM FOOD AND NUTRITION SUPERVISOR Gender Identity Not on file Sexual Orientation [...] complete this topic Insurance [employer] Care Teams Pet Training Instructor Relationship Specialty Start Date End Date Dwight Garcia MD PCP - General 09/10/08
--- NOTE | 2025-01-20 09:18 | ED.URI ---
HPI - URI/Sore Throat General Chief Complaint: Upper Respiratory Infection Stated Complaint: cough/chest and throat pain Time Seen by Provider: 01/20/25 09:10 Source: patient, RN notes reviewed and old records reviewed Mode of arrival: ambulatory Limitations: no limitations History of Present Illness HPI Narrative: 29 year old female who preents to express care with 4 day history of sore throat, cough with burning sensation in chest and hoarseness. Patient reports no knwon fevers chills or sweats, denies any abdominal pain,nausea or vomiting reports 2 episodes of diarrhea. Patient reports that son has been ill with pneumonia. She states that she has been taking Zyrtec, Ibuprofen and some Vitamin C for her symptoms. MD elicited complaint: cough, sore throat and other (hoarseness, some diarrhea also.) Onset (ago): day(s) (4) Pain scale (0-10): 7 Able to tolerate fluids by mouth: Yes Exacerbating factors: swallowing Treatments prior to arrival: ibuprofen and other (vitamin C) Related Data Allergies Allergy/AdvReac Type Severity Reaction Status Date / Time No Known Allergies Allergy Verified 01/20/25 09:26 Review of Systems Review of Systems: CONSTITUTIONAL: Reports malaise, no chills, sweats, or fever. EYES: Denies visual changes, redness, or discharge. ENT: Reports rhinorrhea, congestion,no sinus pain, no otalgia and positive for sore throat and hoarseness. CARDIOVASCULAR: Denies chest pain, palpitations, or edema. RESPIRATORY: Reports cough.? Denies dyspnea.reports burning in chest with cough GASTROINTESTINAL: Denies abdominal pain, nausea, vomiting, diarrhea SKIN: Denies rash or itching. MUSCULOSKELETAL: Denies myalgia. NEUROLOGIC: Denies headache. All systems reviewed & are unremarkable except as noted in HPI and below PMFSH Surgical History Surgical History (Updated 01/21/25 @ 08:44 by Belen Bains NP) Previous section Social History Social History (Updated 01/21/25 @ 08:45 by Belen Bains NP) Smoking status: Never smoker Alcohol intake: current Alcohol use details: rare social Substance use type: does not use Living arrangements: with family Gender identity (if verbalized by the patient): Female Comments At time of signature, agree with nursing past medical, surgical, social and family history. There is no relevant family history pertinent to the presenting complaint Exam Narrative: GENERAL: Well-appearing, well-nourished, and in no acute distress. HEAD: Normocephalic EYES: PERRLA, conjunctivae clear ENT: Nares clear, turbinates edematous and erythematous, clear discharge. Mucous membranes moist. TM pearly silva with dull light reflex bilaterally; no tragal tenderness. Oropharynx erythematous without lesions. Tonsils not enlarged and without exudate, no drooling, positive hoarseness, no trismus, uvula midline.post nasal drainage NECK: Supple. No lymphadenopathy CHEST: Clear to auscultation, breath sounds equal. No wheezing, rhonchi, rales, or stridor. No respiratory distress, speaks in full sentences.dry cough noted SAO2 99% on room air HEART: Regular rate and rhythm. No murmur heard. SKIN: Warm, dry, no rash. NEURO: Alert and oriented x3. PSYCH: Normal mood and affect Course Course Emergency Course: Patient is aware of diagnosis, understands and agrees to treatment plan.? Anticipatory guidance given.? Patient agrees to follow-up as directed and is aware of reasons to seek care at the emergency department. Portions of this record may have been created with voice recognition software Level of Care: Express Care Visit Vital Signs Vital signs: Vital Signs Temperature 36.1 C L 01/20/25 08:57 Pulse Rate 83 01/20/25 08:57 Respiratory Rate 18 01/20/25 08:57 Blood Pressure 134/80 01/20/25 08:57 Pulse Oximetry 99 01/20/25 08:57 Oxygen Delivery Room Air 01/20/25 08:57 Temperature 36.1 C L 01/20/25 08:57 Pulse Rate 83 01/20/25 08:57 Respiratory Rate 18 01/20/25 08:57 Blood Pressure 134/80 01/20/25 08:57 Pulse Oximetry 99 01/20/25 08:57 Oxygen Delivery Room Air 01/20/25 08:57 Reviewed MDM - URI/Sore Throat MDM Narrative Medical decision making narrative: Differential diagnosis considered: Andrews virus, strep pharyngitis, allergic rhinitis, upper respiratory tract infection, sinusitis, rhinosinusitis, nasopharyngitis. viral pharyngitis, otitis media, otitis externa, pneumonia, bronchitis, viral cough syndrome, viral syndrome, and influenza.? Exam findings show no acute concerns or changes; patient is non-toxic appearing and is in no distress.? Patient is appropriate for outpatient treatment and follow-up. Differential Diagnosis Differential diagnosis: Likely upper respiratory infection, viral infection, pharyngitis and other (strep pharyngitis) Lab Data Attestation: I reviewed the patient's lab results. Lab results narrative: strep screen negative , culture sent Labs: Lab Results 01/20/25 Range/Units 09:37 POC Grp A Strep Screen Negative (Negative) reviewed Critical Care Time Critical Care Time Critical Care Time: No Discharge Plan Discharge Clinical Impression: Upper respiratory infection Qualifiers: URI type: unspecified URI Qualified Code(s): J06.9 - Acute upper respiratory infection, unspecified Pharyngitis Qualifiers: Pharyngitis/tonsillitis etiology: unspecified etiology Qualified Code(s): J02.9 - Acute pharyngitis, unspecified Patient Disposition: Home Condition: Stable Instructions: Upper Respiratory Infection (ED), Acute Cough (ED), Pharyngitis (ED) Additional Instructions: Increase fluids especially juices and water Ktoh-lfb-aezmkxd cough and cold medicine of your choice for your symptoms recommend Delsym or Robitussin cough syrup Zyrtec Claritin or Gloria daily Steroids as directed--take with food heat to the face 20-30 minutes 4-6 times a day for pain Salt water gargles, throat lozenges or throat sprays as desired Your strep test today was negative. A throat culture will be sent to the laboratory for further testing. IF the test is positive, you will receive a phone call within 48 hours and an appropriate antibiotic will be initiated at that time. Tylenol or ibuprofen for any fever pain per package instructions If your symptoms persist, change or worsen significantly before you can contact your personal physician then please, without delay, go to the emergency department for further evaluation. Follow-up with PCP in 7-10 days or sooner if needed Follow up with PCP soon in regards to your blood pressure which is elevated above threshold for referral. Blood pressure above 120/80 may indicate pre-hypertension. 134/80 Patient Language: Ivorian Prescriptions: New methylprednisolone [Medrol (Javier)] 4 mg tablets,dose pack See Rx Instructions .ROUTE .COMPLEX Qty: 21 0RF Rx Instructions: orally per package directions take with food Follow-up/Referrals: PHYSICIAN,FISCAL AGENT [Primary Care Provider, Internal Medicine] Stand Alone Forms: Work/School Release IP Time of Disposition: 09:29 Quality Perryman Coma Scale Eyes: Open Verbal: Oriented and Alert Motor: Follows Commands Perryman Coma Total Score: 15
[2025-01-20 09:43] LABS: EDSTREPNEGPOS1 Negative (Negative)
== END 2025-01-20 09:40 | disposition home or self-care (01) ==
PROVIDERS: Emergency Provider Registered Nurse
DX: J06.9 Acute upper respiratory infection, unspecified (principal); J02.9 Acute pharyngitis, unspecified; K21.9 Gastro-esophageal reflux disease without esophagitis; Z86.16 Personal history of COVID-19
CPT/HCPCS: 87081; 87880; 99213; G0463

== ENCOUNTER 2025-02-03 08:51 | Emergency (ER) | payer SELFPAY ==
[2025-02-03 08:56] VITALS: BP 133/77; PULSE 89; RESP 16; TEMP 36.8; O2SAT 99
--- NOTE | 2025-02-03 09:14 | ED.URI ---
HPI - URI/Sore Throat General Chief Complaint: Upper Respiratory Infection Stated Complaint: Cough/Chest Pain/Sinus Problem Time Seen by Provider: 02/03/25 09:15 Source: patient, RN notes reviewed and old records reviewed Mode of arrival: ambulatory Limitations: no limitations History of Present Illness HPI Narrative: 29 year old female who presents to express care with complaints of sinus congestion with drainage, productive cough, some chest tightness with cough, and some feeling of dyspnea with exertion. Patient reports that she was seen on the 1st of the month but her symptoms have not improved and actually she thinks are worse. Patient reports that she did finish steroids as ordered previously and seemed better till they were done. Patient reports that she has been taking Zyrtec, Benadryl, DayQuil and NyQuil.Patient dis have strep test on the with negative culture MD elicited complaint: cough, sore throat, rhinorrhea, nasal congestion and sinus pain Onset (ago): week(s) (greater than 2 weeks) Description of mucous: yellow Treatments prior to arrival: cold medicine and other (Zyrtec, Benadryl) Related Data Allergies Allergy/AdvReac Type Severity Reaction Status Date / Time No Known Allergies Allergy Verified 01/20/25 09:26 Review of Systems Review of Systems: CONSTITUTIONAL: reports malaise,no chills, sweats, or fever. EYES: Denies visual changes, redness, or discharge. ENT: Reports rhinorrhea, congestion, sinus pain,right otalgia and no sore throat. CARDIOVASCULAR: Denies chest pain, palpitations, or edema. RESPIRATORY: Reports productive cough.?reports some chest tightness with cough and feels some dyspnea with exertion . GASTROINTESTINAL: Denies abdominal pain, nausea, vomiting, diarrhea SKIN: Denies rash or itching. MUSCULOSKELETAL: Denies myalgia. NEUROLOGIC: reports some frontal headaches All systems reviewed & are unremarkable except as noted in HPI and below PMFSH Past Medical History Medical History (Updated 02/03/25 @ 12:41 by Belen Bains NP) GERD (gastroesophageal reflux disease) Anxiety Croup as child Surgical History Surgical History (Updated 01/21/25 @ 08:44 by Belen Bains NP) Previous section Social History Social History (Updated 01/21/25 @ 08:45 by Belen Baisn NP) Smoking status: Never smoker Alcohol intake: current Alcohol use details: rare social Substance use type: does not use Living arrangements: with family Gender identity (if verbalized by the patient): Female Comments At time of signature, agree with nursing past medical, surgical, social and family history. There is no relevant family history pertinent to the presenting complaint Exam Narrative: GENERAL: Well-appearing, well-nourished, and in no acute distress. HEAD: Normocephalic EYES: PERRLA, conjunctivae clear ENT: Nares clear, turbinates edematous and erythematous, yellow tinged discharge. Mucous membranes moist.Right TM red, Left TM pearly silva with dull light reflex bilaterally; no tragal tenderness. Oropharynx erythematous without lesions. Tonsils not enlarged and without exudate, no drooling, no hoarseness, no trismus, uvula midline. NECK: Supple. No lymphadenopathy CHEST: Clear to auscultation, breath sounds equal. No wheezing, rhonchi, rales, or stridor. No respiratory distress, speaks in full sentences.frequent cough noted at times productive yellow mucous,SAO2 99% on room air HEART: Regular rate and rhythm. No murmur heard. SKIN: Warm, dry, no rash. NEURO: Alert and oriented x3. PSYCH: Normal mood and affect Course Course Emergency Course: Patient is aware of diagnosis, understands and agrees to treatment plan.? Anticipatory guidance given.? Patient agrees to follow-up as directed and is aware of reasons to seek care at the emergency department. Portions of this record may have been created with voice recognition software Level of Care: Express Care Visit Vital Signs Vital signs: Vital Signs Temperature 36.8 C 02/03/25 08:56 Pulse Rate 89 02/03/25 08:56 Respiratory Rate 16 02/03/25 08:56 Blood Pressure 133/77 02/03/25 08:56 Pulse Oximetry 99 02/03/25 08:56 Oxygen Delivery Room Air 02/03/25 08:56 Temperature 36.8 C 02/03/25 08:56 Pulse Rate 89 02/03/25 08:56 Respiratory Rate 16 02/03/25 08:56 Blood Pressure 133/77 02/03/25 08:56 Pulse Oximetry 99 02/03/25 08:56 Oxygen Delivery Room Air 02/03/25 08:56 reviewed MDM - URI/Sore Throat MDM Narrative Medical decision making narrative: Differential diagnosis considered: Andrews virus, strep pharyngitis, allergic rhinitis, upper respiratory tract infection, sinusitis, rhinosinusitis, nasopharyngitis. viral pharyngitis, otitis media, otitis externa, pneumonia, bronchitis, viral cough syndrome, viral syndrome, and influenza.? Exam findings show no acute concerns or changes; patient is non-toxic appearing and is in no distress.? Patient is appropriate for outpatient treatment and follow-up. Differential Diagnosis Differential diagnosis: Likely upper respiratory infection, otitis media, sinusitis and other (acute cough) Medical Records Attestation: I reviewed the patient's medical records. Lab Data Attestation: I reviewed the patient's lab results. Critical Care Time Critical Care Time Critical Care Time: No Discharge Plan Discharge Clinical Impression: Cough in adult patient Sinusitis Qualifiers: Sinusitis location: pansinusitis Chronicity: acute Recurrence: not specified as recurrent Qualified Code(s): J01.40 - Acute pansinusitis, unspecified Otitis media, right Qualifiers: Otitis media type: serous Chronicity: acute Recurrence: non-recurrent Qualified Code(s): H65.01 - Acute serous otitis media, right ear Patient Disposition: Home Condition: Stable Instructions: Antibiotic Form, Sinusitis (ED), Ear Infection (GEN), Acute Cough (ED) Additional Instructions: Increase fluids especially juices and water Yimr-xnx-dsqamyk cough and cold medicine of your choice for your symptoms Zyrtec Claritin or Gloria daily Steroids as directed--take with food heat to the face 20-30 minutes 4-6 times a day for pain Salt water gargles, throat lozenges or throat sprays as desired Antibiotic as directed--finished the medication Tylenol or ibuprofen for any fever pain per package direction If your symptoms persist, change or worsen significantly before you can contact your personal physician then please, without delay, go to the emergency department for further evaluation. Follow-up with PCP in 7-10 days or sooner if needed Follow up with PCP soon in regards to your blood pressure which is elevated above threshold for referral. Blood pressure above 120/80 may indicate pre-hypertension.133/77 Patient Language: Urdu Prescriptions: New amoxicillin-pot clavulanate 875-125 mg tablet 1 tablet PO Q12H Qty: 20 0RF Rx Instructions: take with food recommend taking probiotic daily while on this medication prednisone 20 mg tablet 40 mg PO DAILY 5 Days Qty: 10 0RF No Action methylprednisolone [Medrol (Javier)] 4 mg tablets,dose pack See Rx Instructions .ROUTE .COMPLEX Qty: 21 0RF Rx Instructions: orally per package directions take with food Follow-up/Referrals: PHYSICIAN,CUTTER HOT KNIFE [Primary Care Provider, Internal Medicine] Stand Alone Forms: Work/School Release IP Time of Disposition: 09:28 Quality Leland Coma Scale Eyes: Open Verbal: Oriented and Alert Motor: Follows Commands Leland Coma Total Score: 15
--- OUTSIDE RECORDS SUMMARY | 2025-02-03 09:37 | XMS_ITS | Clinical Summary ---
Author Organization [facility] Address [address] [place] [address] Phone Care Team Providers Care Desulfurizer Machine Name Role Phone Reynaldo Howard MD Primary Care Provider [phone] Allergies No known active allergies Medications FLUoxetine [...] 12/21/202411/2011, 02/10/2011, 03/02/2009 SARS-COV-2 Immunization ( - 2024- season) 2024 Respiratory Syncytial Virus (RSV) Immunization [...] patient's age to complete this topic Insurance [facility] Care Teams Desulfurizer Machine Relationship Specialty Start Date End Date Reynaldo Howard MD [address] [facility] [id number] [place] [address] PCP - General 08/20/23
--- OUTSIDE RECORDS SUMMARY | 2025-02-03 09:37 | XMS_ITS | Clinical Summary ---
Author Organization [facility] Address [address] [place] [address] Care Team Providers Care Cob Sawyer Name Role Phone Dwight Garcia MD Primary Care Provider Collette spicer Source Comments [facility],non-owned Affiliates and Associated Physician Practices is amultiple site organization consisting of ambulatory clinics and hospital sitesin [place], [place], [place] and [place]. This disclosure is being madepursuant to the Care Everywhere program and may not contain all information available regarding this patient. 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
--- OUTSIDE RECORDS SUMMARY | 2025-02-03 09:37 | XMS_ITS | Encounter Summary ---
Author Organization [facility] Address [address] [place] [address] Care Team Providers Care Director It Project Name Role Phone Dwight Garcia MD Primary Care Provider [phone] Encounter Details Date Type Department Care Team (Late st Contact Info) Description 09/29/2008 Outpatient Historical HIS MRI DEPT [facility], External Provider [address] [place] [address] [place] [address] [place] [id number] Social History Tobacco Use Types Packs/Day Years Used Date Smoking Tobacco: Never Assessed Comments Unknown Sex and Gender Information Value Date Recorded Sex Assigned at Not on file 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
--- OUTSIDE RECORDS SUMMARY | 2025-02-03 09:37 | XMS_ITS | Clinical Summary ---
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
--- OUTSIDE RECORDS SUMMARY | 2025-02-03 09:37 | XMS_ITS | Clinical Summary ---
Author Organization [facility] Address [address] [place] [address] Care Team Providers Care Vp Medical Name Role Phone No, Physician Primary Care Provider [phone] Allergies Active Allergy Reactions Criticality Noted Date [...] 06/06/2020 Assessment & Plan (06/06/2020 1:48 PM TEACHER KINDERGARTEN): for failed IOL in setting of preeclampsia with severe features; incision is healing. Advised to gently remove steri strips, keep clean/dry. Return in 4 weeks for visit. Anxiety and depression 06/06/2020 Assessment & Plan (06/06/2020 1:52 PM TEACHER KINDERGARTEN): Started on Zoloft 25mg postoperatively, tolerating well. Continue current dose. Resolved Problems Problem Noted Date Diagnosed Date Resolved Date Preeclampsia, severe, third trimester 2020 05/21/2020 Assessment & Plan (06/06/2020 1:49 PM TEACHER KINDERGARTEN): Blood pressures at reportedly goal with daily [...] of Binge Drinking Not on file 04/22 Hampton Depression Scale Answer Date Recorded Hampton Depression Scale Total 15 07/01/2020 The thought [...] on file Legal Sex Female 10:13 PM TEACHER KINDERGARTEN Gender Identity Not on file Sexual Orientation [...] aram in First Stage Delivery Location:[facility] ([facility] L AND D PROCEDURE) Last Filed Vital Signs Vital Sign Reading Time Taken Comments Blood Pressure 129/75 03/23/2024 5:20 PM TEACHER KINDERGARTEN Pulse 88 03/23/2024 5:20 PM TEACHER KINDERGARTEN Temperature 36.7 C (98 F) 03/23/2024 1:46 PM TEACHER KINDERGARTEN Respiratory Rate 16 03/23/2024 5:20 PM TEACHER KINDERGARTEN Oxygen Saturation 99% 03/23/2024 5:20 PM TEACHER KINDERGARTEN Inhaled Oxygen Concentration - - Weight 102.1 kg (225 lb) 03/23/2024 1:46 PM TEACHER KINDERGARTEN Height 161.5 cm (5' 3.58) 05/31/2021 2:34 PM CS T Body Mass Index 39.13 05/31/2021 2:34 PM TEACHER KINDERGARTEN Plan of Treatment Health Maintenance Due Date [...] HIGH RISK HPV Routine 05/31/2021 3:59 PM TEACHER KINDERGARTEN Encounter for well woman exam with routine gynecological exam from Last 3 Months or Most Recently Relevant to Health Maintenance Results * Pap with reflex to High Risk HPV (05/31/2021 3:59 PM TEACHER KINDERGARTEN) Thin prep (Pap test) 05/31/2021 3:59 PM TEACHER KINDERGARTEN 06/01/2021 10:37 AM TEACHER KINDERGARTEN Narrative PATHOLOGY [facility] - 06/06/2021 7:55 AM TEACHER KINDERGARTEN EPIC results best viewed via link to PDF [address], [place], [place] [address] Tele: Christine Andre MD - Abrasives Sales Representative CYTOLOGY REPORT Note to Patients: [...] Patient Name: SANFORDASHLEY ELLEN L. Address: [facility] [address] , [place] [address] Gender: F : 1995 (Age: 26) Service: Location: Hospital #: [id number] Patient Type: [facility] SPECIMEN Taken: 05/31/2021 Reported: 06/06/2021 Physician(s): Marely Deutsch M.D. FINAL DIAGNOSIS: Specimen Type: - ThinPrep Pap w/ reflex HPV Statement of Specimen Adequacy: Source: Cervical/Endocervical - Satisfactory for interpretation - Endocervical/Transformation zone component absent or insufficient - Case screened using computer assisted imaging technology and manually re- screened by a rn hospice. General Categorization: - Negative for intraepithelial lesion or malignancy xbb/06/06/2021 07:55 Vickie Arnold M.S., ADIEL (ASCP) ADIEL Estevez (ASCP) Report Reviewed and Electronically Signed By ADIEL Estevez (ASCP) Clerical Data Follow A; G0145 CLINICAL DIAGNOSIS AND HISTORY Last Menstrual Period: 05-31-2021 This specimen has been rescreened in accordance with the [facility] Laboratory Quality Management Program. REPORT IMAGES [...] MD LAB CYTOLOGY ORDERABLES Final Result PATHOLOGY [facility] Laboratory Receiving [address] [place] [address] from Last 3 Months or Most Recently Relevant to Health Maintenance Insurance [employer] Member Subscriber Plan / Payer (Ef fective 2021-Present) Name:Ellen Oliveros Relation to Subscriber:Self Name:Ellen Oliveros Payer ID:[id number] (NAIC) Type:HEALTHCARE/EXCHANGE Address: [address] [employer] Advance Directives For more information, please contact: [phone] * Full Code (Latest Code Status on File) Date Activated Date Inactivated Comments 05/21/2020 12:18 PM 05/25/2020 6:32 PM * Full Code Date Activated Date Inactivated Comments 05/11/2020 5:21 AM 05/21/2020 12:18 PM Care Teams Vp Medical Relationship Specialty Start Date End Date No, Physician PCP - General 03/23/24
== END 2025-02-03 09:33 | disposition home or self-care (01) ==
PROVIDERS: Emergency Provider Registered Nurse
DX: R05.9 Cough, unspecified (principal); J01.40 Acute pansinusitis, unspecified; H65.01 Acute serous otitis media, right ear; K21.9 Gastro-esophageal reflux disease without esophagitis
CPT/HCPCS: 99213; G0463